=== PATIENT | female | born 1955 | race Caucasian/White ===

== ENCOUNTER 2021-06-04 22:54 | Emergency (ER) | payer OTHER ==
[2021-06-04 23:40] LABS: HEMOGLOBIN 15.3 gm/dl (12.3-15.3); RED BLOOD COUNT 5.45 M/UL (4.00-5.10); WHITE BLOOD COUNT 11.7 K/UL (4.5-11.0)
[2021-06-04 23:54] LABS: BUN/CREATININE RATIO 21 (0-10)
[2021-06-05] MEDS ORDERED: MECLIZINE HCL25 MG PO (05:02)
== END 2021-06-06 05:25 | disposition home or self-care (01) ==
LOC: ER1 22:54
PROVIDERS: Family Medicine
DX: I10 Essential (primary) hypertension (principal); R07.9 Chest pain, unspecified; E87.6 Hypokalemia; H81.10 Benign paroxysmal vertigo, unspecified ear; Z20.822 Contact with and (suspected) exposure to COVID-19; Z87.891 Personal history of nicotine dependence
CPT/HCPCS: 70450; 71045; 80053; 82550; 82553; 83874; 84484; 85025; 93005; 99285; Q9967